=== PATIENT | male | born 1970 | race Caucasian/White ===

== ENCOUNTER 2024-07-30 12:15 | Emergency (ER) | payer BC, SELFPAY ==
[2024-07-30 12:27] VITALS: BP 148/89; PULSE 81; RESP 16; TEMP 37.4; O2SAT 100
--- NOTE | 2024-07-30 12:35 | ED.DENTAL ---
HPI - Dental/Oral General Chief complaint: Dental/Oral Stated complaint: Abscess Time Seen by Provider: 07/30/24 12:31 Source: patient and RN notes reviewed Mode of arrival: ambulatory Limitations: no limitations History of Present Illness HPI Narrative: Patient presents today complaining of pain and possible dental abscess to the lower gumline that was noted yesterday with some slight swelling to the gumline today. Patient a dental implant placed at tooth number 25 with some gum grafting as well. He believes he may have an abscess to this area. No [id number] treatment prior to arrival. Related Data Home Medications ?Medication ?Instructions ?Recorded ?Confirmed ?Last Taken ?Type bupropion HCl 150 mg tablet,12 hr 150 mg PO DAILY 07/30/24 07/30/24 Unknown History sustained-release latanoprost 0.005 % eye drops 1 drp EACH EYE QPM 07/30/24 07/30/24 Unknown History lisinopril 10 mg tablet 10 mg PO DAILY 07/30/24 07/30/24 Unknown History propranolol 10 mg tablet 10 mg PO PRN anxiety 07/30/24 07/30/24 Unknown History tamsulosin 0.4 mg capsule 0.4 mg PO PRN PRN prostate 07/30/24 07/30/24 Unknown History trazodone 100 mg tablet 100 mg PO PRN PRN sleep 07/30/24 07/30/24 Unknown History Allergies Allergy/AdvReac Type Severity Reaction Status Date / Time Penicillins Allergy Rash Verified 07/30/24 12:24 Review of Systems Review of Systems: CONSTITUTIONAL: Denies body aches, fever, chills, or sweats. EYES: Denies visual changes, redness, or discharge. ENT: Denies rhinorrhea, congestion, sore throat, or otalgia. + possible dental abscess CARDIOVASCULAR: Denies chest pain, palpitations, or edema. RESPIRATORY: Denies cough or dyspnea. GASTROINTESTINAL: Denies abdominal pain, nausea, vomiting, or diarrhea. GENITOURINARY: Denies dysuria or hematuria. SKIN: Denies rash, itching, or wounds. MUSCULOSKELETAL: Denies back pain, joint pain, or myalgia. NEUROLOGIC: Denies headache, numbness, tingling, or weakness. PSYCH: Denies depression or anxiety. PMFSH Comments At time of signature, I have reviewed and agree with nursing past medical, surgical, social and family history unless otherwise noted. Please see nursing chart for further information. There is no relevant family history pertinent to the presenting complaint Exam Narrative: GENERAL: Well-appearing, well-nourished, and in no acute distress. HEAD: Normocephalic, atraumatic. EYES: EOMI. No redness or drainage. Conjunctivae normal. ENT: Mucous membranes pink and moist. Obvious Small pustule with surrounding erythema of the gumline to tooth number 25. NECK: Normal AROM. CHEST: No respiratory distress. EXTREMITIES: Normal range of motion. No edema. SKIN: Warm, dry, no rash. Capillary refill normal. Normal skin turgor. NEURO: No focal deficits. Alert and oriented x3. Gait steady. PSYCH: Normal affect. No signs of depression or anxiety. Course Course Level of Care: Express Care Visit Vital Signs Vital signs: Vital Signs Temperature 99.3 F 07/30/24 12:27 Pulse Rate 81 07/30/24 12:27 Respiratory Rate 16 07/30/24 12:27 Blood Pressure 148/89 H 07/30/24 12:27 Pulse Oximetry 100 07/30/24 12:27 Temperature 99.3 F 07/30/24 12:27 Pulse Rate 81 07/30/24 12:27 Respiratory Rate 16 07/30/24 12:27 Blood Pressure 148/89 H 07/30/24 12:27 Pulse Oximetry 100 07/30/24 12:27 Reviewed MDM - Dental/Oral MDM Narrative Medical decision making narrative: Obvious gingival abscess. Will place patient on clindamycin and some chlorhexidine mouthwash. He will call and schedule a visit with his dentist. Anticipatory guidance given. Differential Diagnosis Differential diagnosis: Likely gingival abscess and dental abscess Critical Care Time Critical Care Time Critical Care Time: No Discharge Plan Discharge Clinical Impression: Gingival abscess Patient Disposition: Home, Self-Care Condition: Stable Instructions: Antibiotic Form, Dental Abscess (ED) Additional Instructions: Please take the clindamycin as prescribed until gone. He has a PleurX sitting mouthwash as directed. Take Tylenol or ibuprofen if needed for pain. Follow-up with your dentist or oral surgeon as soon as possible for further evaluation. Your blood pressure was elevated above 120/80 today at Urgent Care. This puts you above the threshold for follow up. Please schedule a followup visit with your personal physician as soon as possible, for further evaluation and treatment. Even blood pressure exceeding 120/80 may indicate pre-hypertension. Patient Language: Telugu Prescriptions: New clindamycin HCl 300 mg capsule 300 mg PO Q6H 10 Days Qty: 40 0RF chlorhexidine gluconate 0.12 % mouthwash 15 ml PO BID Qty: 240 0RF Rx Instructions: Swish in mouth for 30 seconds No Action lisinopril 10 mg tablet 10 mg PO DAILY bupropion HCl 150 mg tablet sustained-release 12 hr 150 mg PO DAILY propranolol 10 mg tablet 10 mg PO PRN latanoprost 0.005 % drops 1 drp EACH EYE QPM tamsulosin 0.4 mg capsule 0.4 mg PO PRN PRN (Reason: prostate) trazodone 100 mg tablet 100 mg PO PRN PRN (Reason: sleep) Follow-up/Referrals: PHYSICIAN,DIRECTOR OF SOFTWARE DEVELOPMENT [Primary Care Provider] - Time of Disposition: 12:43
== END 2024-07-30 12:48 | disposition home or self-care (01) ==
PROVIDERS: Emergency Provider Nurse Practitioner
DX: K05.20 Aggressive periodontitis, unspecified (principal); Z79.899 Other long term (current) drug therapy
CPT/HCPCS: 99213; G0463